=== PATIENT | female | born 1955 | race Hispanic/Latino ===

== ENCOUNTER 2024-05-27 10:15 | Outpatient (CLI) | payer OTHER, SELFPAY ==
--- NOTE | 2024-05-27 10:21 | ECG_ITS ---
Test Date: 2024-05-27 10:33:41 Measurements Intervals [place] Rate: 92 P: 59 LA: 163 QRS: 61 QRSD: 71 T: 33 QT: 354 QTc: 439 Interpretive Statements SINUS RHYTHM LOW QRS VOLTAGE IN PRECORDIAL LEADS [QRS DEFLECTION < 1.0 mV IN CHEST LEADS] significant baseline artifact affects interpretation No previous ECG available for comparison Electronically Signed On 05-30-2024 15:02:39 COMPOSITE LAMINATOR by Jalen Merchant M.D.
== END 2024-05-27 10:16 | disposition home or self-care (01) ==
LOC: ANHSURGERY 10:21
PROVIDERS: Visit Provider Surgery Plastic and Reconstructive Surgery
DX: E78.00 Pure hypercholesterolemia, unspecified (principal)
CPT/HCPCS: 93005